=== PATIENT | male | born 1995 | race African-American/Black ===

== ENCOUNTER 2019-01-24 10:46 | Emergency (ER) | payer MEDICAID ==
[~2019-01-24] VITALS: Ht 182.9 cm; Wt 79.0 kg
[2019-01-24] MEDS ORDERED: SODIUM CHLORIDE 0.9% 1,000 ML IV ONE (10:59)
[2019-01-24 12:25] LABS: BASOPHILS % 0.3 % (0.0-2.0); EOSINOPHILS % 0.3 % (0.0-5.0); HEMATOCRIT. 39.8 % (42.0-52.0); HEMOGLOBIN. 13.4 g/dL (14.0-18.0); LYMPHOCYTES % 10.9 % (20.0-50.0); MEAN CORPUSCULAR HEMOGLOBIN 31.8 pg (28.0-32.0); MEAN CORPUSCULAR VOLUME 94.3 fL (80.0-94.0); MEAN PLATELET VOLUME 8.2 fl (7.4-10.4); MONOCYTES % 10.9 % (2.0-8.0); NEUTROPHILS % 77.6 % (40.0-76.0); PLATELET 168 x1000/uL (130-400); RED BLOOD CELL COUNT 4.22 mill/uL (4.7-6.1); RED CELL DISTRIBUTION WIDTH 14.4 % (11.6-14.6)
[2019-01-24 12:30] LABS: CHLORIDE 106 mEq/L (98-107)
[2019-01-24 12:38] LABS: ETHANOL BLOOD < 10 mg/dL
[2019-01-24 13:41] VITALS: BP 107/60
[2019-01-24 13:47] LABS: *AMPHETAMINES SCREEN URINE NEGATIVE (NEGATIVE); *BARBITURATES SCREEN URINE NEGATIVE (NEGATIVE); *BENZODIAZEPINES SCREEN URINE NEGATIVE (NEGATIVE); *COCAINE SCREEN URINE NEGATIVE (NEGATIVE); CANNABINOID URINE SCREEN PRESUMTIVE POSITIVE (NEGATIVE); METHADONE URINE SCREEN NEGATIVE (NEGATIVE); OPIATES URINE SCREEN NEGATIVE (NEGATIVE); PHENCYCLIDINE URINE SCREEN NEGATIVE (NEGATIVE)
== END 2019-01-24 14:31 | disposition home or self-care (01) ==
LOC: ER 10:46
DX: F19.10 Other psychoactive substance abuse, uncomplicated (principal); F12.10 Cannabis abuse, uncomplicated; R45.1 Restlessness and agitation; R05 Cough; I49.8 Other specified cardiac arrhythmias; F17.200 Nicotine dependence, unspecified, uncomplicated
CPT/HCPCS: 36415; 80053; 80305; 80307; 80320; 80329; 85025; 93005; 99284; J7030; G0480

== ENCOUNTER 2019-02-09 18:45 | Emergency (ER) | payer MEDICAID ==
[~2019-02-09] VITALS: Ht 177.8 cm; Wt 73.0 kg
[2019-02-10 00:12] VITALS: BP 122/65
== END 2019-02-10 00:28 | disposition home or self-care (01) ==
LOC: ER 18:45
DX: G47.00 Insomnia, unspecified (principal); F12.10 Cannabis abuse, uncomplicated
CPT/HCPCS: 99283

== ENCOUNTER 2020-03-16 02:15 | Emergency (ER) | payer MEDICAID, MEDICARE ==
[~2020-03-16] VITALS: Ht 177.8 cm; Wt 77.0 kg
[2020-03-16] MEDS ORDERED: SODIUM CHLORIDE 0.9% 1,000 ML IV ONE (03:45)
[2020-03-16 04:40] LABS: BASOPHILS % 0.3 % (0.0-2.0); HEMATOCRIT. 40.7 % (42.0-52.0); HEMOGLOBIN. 13.9 g/dL (14.0-18.0); LYMPHOCYTES % 14.3 % (20.0-50.0); MEAN CORPUSCULAR HEMOGLOBIN 32.2 pg (28.0-32.0); MEAN CORPUSCULAR VOLUME 94.3 fL (80.0-94.0); MONOCYTES % 11.4 % (2.0-8.0); PLATELET 146 x1000/uL (130-400); RED BLOOD CELL COUNT 4.32 mill/uL (4.7-6.1); RED CELL DISTRIBUTION WIDTH 13.3 % (11.6-14.6)
[2020-03-16 04:48] LABS: CHLORIDE 103 mEq/L (98-107)
[2020-03-16 04:52] LABS: ETHANOL BLOOD < 10 mg/dL
[2020-03-16 04:58] LABS: *AMPHETAMINES SCREEN URINE NEGATIVE (NEGATIVE)
[2020-03-16 04:59] LABS: *BARBITURATES SCREEN URINE NEGATIVE (NEGATIVE); *BENZODIAZEPINES SCREEN URINE NEGATIVE (NEGATIVE); *COCAINE SCREEN URINE NEGATIVE (NEGATIVE); CANNABINOID URINE SCREEN PRESUMTIVE POSITIVE (NEGATIVE); METHADONE URINE SCREEN NEGATIVE (NEGATIVE); OPIATES URINE SCREEN NEGATIVE (NEGATIVE); PHENCYCLIDINE URINE SCREEN NEGATIVE (NEGATIVE)
[2020-03-16 08:28] VITALS: BP 142/91
== END 2020-03-16 09:25 | disposition home or self-care (01) ==
LOC: ER 02:15
DX: F12.129 Cannabis abuse with intoxication, unspecified (principal)
CPT/HCPCS: 36415; 80053; 80305; 80320; 82962; 85025; 93005; 96360; 99284; J7030; G0480